=== PATIENT | male | born 1995 | race Caucasian/White ===

== ENCOUNTER 2017-09-03 22:04 | Emergency (ER) | payer MEDICAID ==
[2017-09-03] MEDS: HYDROmorphONE 1 MG/ML SYG IV ×2 (22:36→23:04)
[2017-09-03] MEDS: ONDANSETRON 4 MG INJ IV (22:36)
[2017-09-03] MEDS: LORAZEPAM 2 MG INJ IV (23:08)
[2017-09-03] MEDS: KETOROLAC 30 MG INJ IV (23:08)
[2017-09-03] MEDS: ETOMIDATE 20 MG INJ IV (23:11)
[2017-09-04] MEDS: HYDROmorphONE 2 MG/ML SYG IV (00:12)
== END 2017-09-04 00:14 | disposition home or self-care (01) ==
LOC: E/R 09-04 00:14
DX: S42.401A Unspecified fracture of lower end of right humerus, initial encounter for closed fracture (principal); F17.210 Nicotine dependence, cigarettes, uncomplicated; W01.0XXA Fall on same level from slipping, tripping and stumbling without subsequent striking against object, initial encounter; Y92.009 Unspecified place in unspecified non-institutional (private) residence as the place of occurrence of the external cause
CPT/HCPCS: 73080; 73080-RT; 96374; 96375; 96376; 99284-25

== ENCOUNTER 2017-11-21 11:28 | Emergency (ER) | payer SELFPAY, MEDICAID | END 2017-11-21 12:18 | disposition left against medical advice (07) | LOC: FTE 12:18 | DX: Z53.21 Procedure and treatment not carried out due to patient leaving prior to being seen by health care provider (principal) ==

== ENCOUNTER 2019-02-18 09:51 | Emergency (ER) | payer OTHER ==
[2019-02-18] MEDS: IBUPROFEN 800 MG TAB PO (10:51)
[2019-02-18] MEDS: ACETAMINOPHEN 500 MG TAB PO (10:51)
[2019-02-18 12:15] LABS: MONOTEST Positive (NEG)
== END 2019-02-18 11:51 | disposition home or self-care (01) ==
LOC: FTE 11:51
DX: J02.0 Streptococcal pharyngitis (principal)
CPT/HCPCS: 36415; 86308; 87880; 99283

== ENCOUNTER → 2019-05-14 | Emergency (ER) | payer OTHER ==
[2019-05-14 13:02] LABS: ADD MAN DIFF? NO
[2019-05-14 13:04] LABS: BASOPHILS % 0.5 % (0.0-2.0); EOSINOPHILS # 0.1 10^3/ul (0.0-0.5); EOSINOPHILS % 1.6 % (0.0-7.0); HEMATOCRIT 46.3 % (42.0-52.0); HEMOGLOBIN 14.7 g/dl (14.0-18.0); LYMPHOCYTES # 1.7 10^3/ul (0.8-2.9); LYMPHOCYTES % 30.7 % (15.0-51.0); MEAN CORPUSCULAR HEMOGLOBIN 26.1 pg (29.0-33.0); MEAN CORPUSCULAR HGB CONC 31.7 g/dl (32.0-37.0); MEAN CORPUSCULAR VOLUME 82.1 fl (82.0-101.0); MEAN PLATELET VOLUME 12.7 fl (7.4-10.4); MONOCYTE # 0.4 10^3/ul (0.3-0.9); MONOCYTES % 7.4 % (0.0-11.0); NEUTROPHIL # 3.3 10^3/ul (1.6-7.5); NEUTROPHILS % 59.4 % (39.0-77.0); PLATELET COUNT 148 10^3/UL (140-415); RED BLOOD COUNT 5.64 10^6/ul (4.70-6.10); RED CELL DISTRIBUTION WIDTH 13.4 % (11.5-14.5)
[2019-05-14 13:04] LABS: WHITE BLOOD COUNT 5.6 10^3/ul (4.8-10.8)
[2019-05-14 13:23] LABS: ALANINE AMINOTRANSFERASE 24 IU/L (13-69); ALBUMIN 4.3 g/dl (3.3-4.9); ALBUMIN/GLOBULIN RATIO 1.16; ALKALINE PHOSPHATASE 71 IU/L (42-121); ANION GAP 6 (5-13); ASPARTATE AMINO TRANSFERASE 24 IU/L (15-46); BLOOD UREA NITROGEN 12 mg/dl (7-20); CALCIUM 8.9 mg/dl (8.4-10.2); CARBON DIOXIDE 33 mmol/L (21-31); CHLORIDE 100 mmol/L (97-110); CREATININE 0.92 mg/dl (0.61-1.24); Estimated GFR > 60 mL/min (>60); GLUCOSE 77 mg/dl (70-220); LIPASE 51 U/L (23-300); POTASSIUM 4.4 mmol/L (3.5-5.1); SODIUM 139 mmol/L (135-144)
== END | disposition home or self-care (01) ==
LOC: FTE 12:05
DX: K40.91 Unilateral inguinal hernia, without obstruction or gangrene, recurrent (principal)
CPT/HCPCS: 36415; 74018; 80053; 83690; 85025; 99284-25